=== PATIENT | female | born 1985 | race Two or more races ===

== ENCOUNTER 2022-03-19 23:07 | Emergency (ER) | payer OTHER, SELFPAY ==
[2022-03-19 23:08] VITALS: BP 126/77; PULSE 102; RESP 18; TEMP 36.9; O2SAT 100; BMI 21.9
[2022-03-20 00:15] VITALS: BP 133/74; PULSE 102; RESP 16; TEMP 36.9; O2SAT 100
--- NOTE | 2022-03-20 00:16 | [facility].EDMCLR ---
ED Disposition Clinical Impression: Medical clearance for incarceration Disposition: Home, Self-Care Condition on Discharge: Good Instructions: DI for Substance Use Disorder Additional Instructions: see pcp for follow up Referrals: Flaco Antonio MD [Primary Care Provider] - - Critical Care Critical Care Time: No Attestation: On 03/19/22, the high probability of a clinically significant, sudden or life threatening deterioration of the following system(s) required my full and direct attention, intervention and personal management. The time I documented below is in addition to time spent performing reported procedures but includes the following listed in this critical care notation. Medical Decision Making - Medical Records Medical records reviewed: Yes: I reviewed the patient's medical records. - Mac Inquiry Pt receiving controlled substance: No Vital Signs: 03/19/22 23:08 Temperature 98.4 F Temperature Source Oral Pulse Rate [Left Radial] 102 H Respiratory Rate 18 Blood Pressure [Right Arm] 126/77 Blood Pressure Mean [Right Arm] 93 02 Sat by Pulse Oximetry 100 Oxygen Delivery Method Room Air Medical Decision Narrative: stable exam and vital signs Medical Clearance HPI - General Chief complaint: Medical Clearance Stated complaint: Medical Clearance Time Seen by Provider: 03/20/22 00:00 Mode of Arrival: Ambulatory Source of Information: Patient, Medical Record Description of Symptoms (Recalled from ER Triage Doc. by RN): MEDICAL CLEARANCE FOR SKILLED NURSING. PT REPORTS LAST HEROINE USE AT 10A.M. TODAY. - History of Present Illness HPI Narrative: pt with no specific c/o MD complaint: medical clearance requested Place: home Traumatic Symptoms: denies traumatic injury Associated Symptoms: denies other symptoms Treatments Prior to Arrival: none Allergies/Adverse reactions: Allergies Allergy/AdvReac Type Severity Reaction Status Date / Time NO KNOWN ALLERGIES Allergy Uncoded 11/06/17 14:06 [facility] History - Hepatitis A Screen Attestation statement:: This patient has been screened for Hepatitis A risk factors. I have reviewed the patient's past medical history: Yes ROS Obtained: Yes All systems reviewed & no additional complaints - Constitutional Constitutional: Denies fever(s) - Eyes Eyes: Denies change in vision - ENT Ears, Nose, Mouth, and Throat: Denies sore throat - Cardiovascular Cardiovascular: Denies chest pain - Respiratory Respiratory: Denies cough - Genitourinary Female Genitourinary: Denies abnormal vaginal bleeding - Integumentary/Breasts Skin/Breast: Denies rash - Neurologic Neurologic: Denies focal weakness Physical Exam - General General appearance: alert - Head Head exam: normocephalic - Eye Eye exam: Present: PERRL, EOMI - ENT ENT exam: Present: mucous membranes moist - Neck Neck exam: Present: trachea midline - Respiratory Respiratory exam: Absent: respiratory distress - Cardiovascular Cardiovascular exam: Present: regular rate - Abdominal Exam Abdominal exam: Present: soft - Extremities Exam Extremities exam: Present: full ROM - Neurological Exam Neurological exam: Present: alert, oriented X3, CN II-XII intact. Absent: motor sensory deficit - Psychiatric Psychiatric exam: Present: normal affect - Skin Skin exam: Absent: rash
== END 2022-03-20 00:21 | disposition home or self-care (01) ==
PROVIDERS: Emergency Provider Emergency Medicine; PCP Emergency Medicine
DX: Z00.8 Encounter for other general examination (principal); F11.10 Opioid abuse, uncomplicated
CPT/HCPCS: 99283